=== PATIENT | male | born 1940 | race Caucasian/White ===

== ENCOUNTER 2018-03-31 12:44 | Inpatient (IN) ==
[2018-03-31] MEDS ORDERED: SODIUM CHLORIDE 0.9% 1,000 ML IV PRN (13:44)
[2018-03-31 14:13] LABS: Alanine Aminotransferase 24 U/L (16-61); Albumin 3.2 G/DL (3.4-5.0); Alkaline Phosphatase 70 U/L (45-117); Aspartate Amino Transferase 23 U/L (0-37); Bilirubin,Total < 0.39 MG/DL (0.2-1.0); Blood Urea Nitrogen 18 MG/DL (7-18); Calcium 8.4 MG/DL (8.5-10.1); Glucose 121 MG/DL (74-106); Osmolality,Calculated 285.1 MOS/KG (273-304); Potassium 4.1 MMOL/L (3.5-5.1); Sodium 142 MMOL/L (136-145); Total Protein 7.1 G/DL (6.4-8.3)
[2018-03-31 14:54] LABS: Basophils % 0.4 % (0.0-0.8); Eosinophils # 0.2 10*3/uL (0.0-0.87); Hemoglobin 6.9 GM/DL (14.0-18.0); Immature Granulocytes % 1.4 %; Immature Granulocytes Absolute 0.07 #; Lymphocytes # 0.8 10*3/uL (1.4-4.0); Lymphocytes % 16.3 % (21.2-54.2); Mean Corpuscular HGB Conc 26.5 GM/DL (32-36); Mean Corpuscular Hemoglobin 18 PG (27-34); Mean Corpuscular Volume 65.8 FL (87-102); Mean Platelet Volume 9.7 FL (9.6-12.0); Monocytes # 0.5 10*3/uL (0.11-0.8); Monocytes % 9.9 % (1.7-12.7); Neutrophils # 3.5 10*3/uL (1.4-7.4); Platelet Count 240 T/CUMM (130-400); Red Blood Count 3.95 MC/CUMM (3.8-5.5); Red Cell Distribution Width 19.4 % (9.3-17.3)
[2018-03-31] MEDS ORDERED: ZALEPLON 5 MG CAPSULE PO PRN (15:09)
[2018-03-31] MEDS ORDERED: ONDANSETRON 4 MG/2 ML VIAL IV PRN (15:09)
[2018-03-31] MEDS ORDERED: ACETAMINOPHEN 325 MG TABLET PO PRN (15:09)
[2018-03-31 16:12] LABS: Band Neutrophils 1 % (0-10); Eosinophils 3 % (0-10); Lymphocytes 11 % (20-55); Nucleated Red Blood Cells 1 (0-5); Segmented Neutrophils 77 % (50-85); Total Cells Counted 100
[2018-03-31 16:14] LABS: Hypochromasia 2+; Microcytosis 1+
[2018-03-31 16:15] LABS: Rouleau Few
[2018-03-31 16:16] LABS: Ovalocytes Few; Stomatocytes Few
[2018-03-31 16:18] LABS: Risk Ratio 3.03; VLDL CHOLESTEROL 13.4 MG/DL
[2018-03-31] MEDS: SODIUM CHLORIDE 0.9% 1,000 ML IV SCH (19:36)
[2018-03-31] MEDS: amLODIPine 5 MG TABLET PO SCH (19:37)
[2018-03-31] MEDS: CARVEDILOL 6.25 MG TABLET PO SCH (20:58)
[2018-03-31] MEDS: DOCUSATE SODIUM 100 MG CAPSULE PO SCH (20:58)
[2018-03-31] MEDS: PANTOPRAZOLE 40 MG VIAL IV SCH (20:59)
[2018-03-31 21:40] LABS: Hematocrit 27.5 VOL% (42.0-52.0); Hemoglobin 7.6 GM/DL (14.0-18.0)
[2018-04-01] MEDS: SODIUM CHLORIDE 0.9% 1,000 ML IV SCH (04:25)
[2018-04-01 05:06] LABS: Hematocrit 28.7 VOL% (42.0-52.0)
[2018-04-01 05:18] LABS: Hemoglobin 8.3 GM/DL (14.0-18.0)
[2018-04-01 05:54] LABS: Albumin 3.1 G/DL (3.4-5.0); Bilirubin,Total 0.9 MG/DL (0.2-1.0); Calcium 7.8 MG/DL (8.5-10.1); Osmolality,Calculated 283.1 MOS/KG (273-304); Potassium 4.1 MMOL/L (3.5-5.1); Total Protein 6.1 G/DL (6.4-8.3)
[2018-04-01] MEDS: PANTOPRAZOLE 40 MG VIAL IV SCH ×2 (08:30→20:33)
[2018-04-01 08:35] LABS: Hematocrit 28.5 VOL% (42.0-52.0)
[2018-04-01] MEDS ORDERED: ETOMIDATE 20 MG/10 ML VIAL IV ONE (09:00)
[2018-04-01] MEDS ORDERED: LIDOCAINE 100 MG/5 ML SYRINGE ONE (09:00)
[2018-04-01] MEDS ORDERED: PROPOFOL 200 MG/20 ML VIAL IV ONE (09:00)
[2018-04-01] MEDS ORDERED: BISACODYL 5 MG TABLET PO ONE (12:00)
[2018-04-01] MEDS ORDERED: SODIUM CHLORIDE 0.9% 1,000 ML IV PRN ×2 (12:15→16:36)
[2018-04-01] MEDS: DOCUSATE SODIUM 100 MG CAPSULE PO SCH ×2 (12:40→20:33)
[2018-04-01] MEDS: IRON (CARBONYL) 45 MG TABLET PO SCH (12:42)
[2018-04-01] MEDS: CARVEDILOL 6.25 MG TABLET PO SCH (13:13)
[2018-04-01] MEDS: amLODIPine 5 MG TABLET PO SCH ×2 (13:14→20:33)
[2018-04-01] MEDS ORDERED: POLYETHYLENE GLYCOL POWDER 255 GM BOTTLE PO ONE (18:00)
[2018-04-02] MEDS: hydrALAZINE 20 MG/1 ML VIAL IV PRN ×2 (01:27→22:01)
[2018-04-02 04:49] LABS: Basophils % 0.5 % (0.0-0.8); Eosinophils # 0.2 10*3/uL (0.0-0.87); Eosinophils % 3.3 % (0.00-10.9); Hematocrit 32.6 VOL% (42.0-52.0); Hemoglobin 9.6 GM/DL (14.0-18.0); Immature Granulocytes Absolute 0.12 #; Lymphocytes # 0.9 10*3/uL (1.4-4.0); Lymphocytes % 15.4 % (21.2-54.2); Mean Corpuscular HGB Conc 29.4 GM/DL (32-36); Mean Corpuscular Hemoglobin 21 PG (27-34); Mean Platelet Volume 10.3 FL (9.6-12.0); Monocytes # 0.7 10*3/uL (0.11-0.8); Monocytes % 10.9 % (1.7-12.7); Neutrophils # 4.1 10*3/uL (1.4-7.4); Neutrophils % 67.9 % (38.7-73.9); Platelet Count 227 T/CUMM (130-400); Red Blood Count 4.66 MC/CUMM (3.8-5.5); Red Cell Distribution Width 23.2 % (9.3-17.3)
[2018-04-02 05:16] LABS: Bilirubin,Total 0.7 MG/DL (0.2-1.0); Osmolality,Calculated 280.3 MOS/KG (273-304); Potassium 3.9 MMOL/L (3.5-5.1); Total Protein 6.5 G/DL (6.4-8.3)
[2018-04-02 05:36] LABS: Hypochromasia 1+; Microcytosis 2+; Spherocytes Few
[2018-04-02 05:37] LABS: Ovalocytes Slight; Platelet Estimate Normal
[2018-04-02] MEDS: PANTOPRAZOLE 40 MG VIAL IV SCH ×2 (10:45→20:36)
[2018-04-02] MEDS ORDERED: GLYCOPYRROLATE 0.4 MG/2 ML VIAL ONE (11:10)
[2018-04-02] MEDS ORDERED: PROPOFOL 200 MG/20 ML VIAL IV ONE (11:10)
[2018-04-02] MEDS ORDERED: LIDOCAINE 2% 5 ML VIAL ONE (11:10)
[2018-04-02] MEDS: DOCUSATE SODIUM 100 MG CAPSULE PO SCH ×2 (12:37→20:34)
[2018-04-02] MEDS: amLODIPine 5 MG TABLET PO SCH ×2 (12:37→20:35)
[2018-04-02] MEDS: IRON (CARBONYL) 45 MG TABLET PO SCH (12:37)
[2018-04-03 04:10] LABS: Basophils % 0.5 % (0.0-0.8); Eosinophils # 0.3 10*3/uL (0.0-0.87); Eosinophils % 5.3 % (0.00-10.9); Hematocrit 35.7 VOL% (42.0-52.0); Hemoglobin 10.7 GM/DL (14.0-18.0); Immature Granulocytes % 1.3 %; Immature Granulocytes Absolute 0.08 #; Lymphocytes # 1.2 10*3/uL (1.4-4.0); Lymphocytes % 19.4 % (21.2-54.2); Mean Corpuscular Hemoglobin 21 PG (27-34); Mean Corpuscular Volume 69.2 FL (87-102); Mean Platelet Volume 9.8 FL (9.6-12.0); Monocytes # 0.7 10*3/uL (0.11-0.8); Monocytes % 11.5 % (1.7-12.7); Neutrophils # 3.8 10*3/uL (1.4-7.4); Platelet Count 239 T/CUMM (130-400); Red Blood Count 5.16 MC/CUMM (3.8-5.5); White Blood Count 6.1 T/CUMM (4-12)
[2018-04-03 04:38] LABS: Albumin 3.4 G/DL (3.4-5.0); Bilirubin,Total 0.4 MG/DL (0.2-1.0); Calcium 8.3 MG/DL (8.5-10.1); Osmolality,Calculated 277.4 MOS/KG (273-304); Potassium 3.5 MMOL/L (3.5-5.1); Total Protein 7.1 G/DL (6.4-8.3)
[2018-04-03] MEDS: hydrALAZINE 20 MG/1 ML VIAL IV PRN (04:43)
[2018-04-03 05:16] LABS: Hypochromasia 1+
[2018-04-03 05:17] LABS: Microcytosis 1+; Platelet Estimate Adequate
[2018-04-03] MEDS ORDERED: amLODIPine 10 MG TABLET PO ONE (07:42)
[2018-04-03] MEDS: PANTOPRAZOLE 40 MG VIAL IV SCH (08:59)
[2018-04-03] MEDS ORDERED: amLODIPine 10 MG TABLET PO SCH (09:00)
[2018-04-03] MEDS ORDERED: LISINOPRIL 10 MG TABLET PO SCH (09:00)
[2018-04-03] MEDS: DOCUSATE SODIUM 100 MG CAPSULE PO SCH (09:00)
[2018-04-03] MEDS: IRON (CARBONYL) 45 MG TABLET PO SCH (09:01)
[2018-04-03 13:54] VITALS: BP 179/88
== END 2018-04-03 13:45 | disposition home or self-care (01) | DRG 812 ==
LOC: N.ED 12:44 → SUATTDRO 15:07 → N.EDINP 15:07 → N.4E 18:51
PROVIDERS: ADMIT Internal Medicine; ATTEND Internal Medicine